=== PATIENT | female | born 1955 ===

== ENCOUNTER 2017-09-30 16:38 | Emergency (ER) | payer MEDICAID, MEDICARE ==
[2017-09-30 16:50] VITALS: BP 132/87
--- NOTE | 2017-09-30 18:07 | RAD ---
Indication: Shortness of breath, cough. 2 views of the chest including dual energy PA views demonstrates no pleural fluid. Scarring of the lung bases is noted. No definite pneumonia is identified. Emphysematous changes are noted. IMPRESSION: No definite pneumonia. Scarring is noted in the lung bases.
--- NOTE | 2017-09-30 18:24 | UC ---
Dennys Michelle Nilda, scribed for Chase Lowry MD on 09/30/17 at 1716 . Respiratory Complaint HPI - HPI Summary HPI Summary: This patient is a 61 year old F presenting to [facility] accompanied by with a chief complaint of constant sore throat for the past 4 days. Symptoms aggravated by exertion and alleviated by rest. Patient reports productive cough (green), rhinorrhea, and SOB. Patient denies fever and edema. Medications include prednisone. Allergies include Neosporin and Bacitracin. PMHx includes COUP and CAD. No PMHx CHF. - History of Current Complaint Chief Complaint: UCRespiratory Stated Complaint: SORE THROAT Time Seen by Provider: 09/30/17 17:05 Hx Obtained From: Patient Onset/Duration: Sudden Onset, Lasting Days, Still Present Timing: Constant Pain Intensity: 0 Pain Scale Used: 0-10 Numeric Character: Cough: Productive, Sputum Description: - green Aggravating Factors: Exertion Alleviating Factors: Other - rest Associated Signs And Symptoms: Negative: Fever, Edema - Allergies/Home Medications Allergies/Adverse Reactions: Allergies Allergy/AdvReac Type Severity Reaction Status Date / Time Bacitracin Allergy Rash Verified 09/30/17 16:51 Home Medications: Home Medications Atorvastatin* [Lipitor 10 MG*] 1 tab PO DAILY 09/30/17 [History Confirmed ] predniSONE TAB* [Deltasone TAB*] 7.5 mg PO DAILY 09/30/17 [History Confirmed ] PMH/Surg Hx/FS Hx/Imm Hx Cardiovascular History: Cardiac Disease Respiratory History: Other Other Respiratory History: COUP - Surgical History Surgical History: None Surgery Procedure, Year, and Place: lung biopsy 2010 - Family History Known Family History: Positive: Respiratory Disease - COPD - Social History Alcohol Use: None Substance Use Type: None Smoking Status (MU): Never Smoked Tobacco - Immunization History Most Recent Influenza Vaccination: 2017 Most Recent Pneumonia Vaccination: 2016 Review of Systems Constitutional: Other - negative fever ENT: Sore Throat, Nasal Discharge Respiratory: Shortness Of Breath, Cough Musculoskeletal: Other: - negative edema All Other Systems Reviewed And Are Negative: Yes Physical Exam Triage Information Reviewed: Yes Vital Signs: Initial Vital Signs Temp 98.5 F 09/30/17 16:40 Pulse 126 09/30/17 16:40 Resp 14 09/30/17 16:40 BP 132/87 09/30/17 16:40 Pulse Ox 98 09/30/17 16:40 Vital Signs Reviewed: Yes - Additional Comments General: well-appearing, no pain distress Skin: warm, color reflects adequate perfusion, dry Head: normal Eyes: EOMI, DANETTE ENT: normal Neck: supple, nontender Respiratory: breath sounds present, crackles bilat bases Cardiovascular: RRR Abdomen: soft, nontender Bowel: present Musculoskeletal: normal, strength/ROM intact Neurological: normal, sensory/motor intact, A&O x3 Psychological: affect/mood appropriate Diagnostic Evaluation - Laboratory O2 Sat by Pulse Oximetry: 98 - Radiology Radiology Interpretation Completed By: Radiologist - CXR, per radiologist, reveals no definite pneumonia. Scarring is noted in the lung bases. Dr. Lowry has reviewed this radiology report. Respiratory Course/Dx - Course Course Of Treatment: Medications reviewed. Allergies noted. BP noted and advised to follow up with PCP. CXR, per radiologist, reveals no definite pneumonia. Scarring is noted in the lung bases. Dr. Lowry has reviewed this radiology report. DISCUSSED RESULTS WITH PATIENT AND FAMILY. WILL START ZPAC. WE DISCUSSED THAT IF SHE GETS WORSE, TO GO TO THE ED. F/U PMD; GO TO ED IF WORSE. - Differential Dx/Diagnosis Provider Diagnoses: BRONCITIS. Elevated blood pressure without history of hypertension. Discharge - Discharge Plan Condition: Stable Disposition: HOME Prescriptions: Azithromycin TAB* [Zithromax TAB (Z-LISA) 250 mg #6 tabs] 2 tab PO .TODAY, THEN 1 DAILY #1 lisa Patient Education Materials: Acute Bronchitis (ED) Referrals: Ninfa Barton MD [Primary Care Provider] - Additional Instructions: FOLLOW UP WITH YOUR DOCTOR. GO TO THE EMERGENCY DEPARTMENT FOR ANY WORSENING OF YOUR CONDITION; CHEST PAIN, SHORTNESS OF BREATH, YOU FEEL ILL OR QUESTIONS OR CONCERNS. Your blood pressure was elevated during todays visit; please follow up with your primary care provider within a week for further evaluation. The documentation as recorded by the Dennys felipe Nilda accurately reflects the service I personally performed and the decisions made by me, Chase Lowry MD.
== END 2017-09-30 18:32 | disposition home or self-care (01) ==
LOC: UCEAST 16:38
DX: J40 Bronchitis, not specified as acute or chronic (principal); R03.0 Elevated blood-pressure reading, without diagnosis of hypertension; J02.9 Acute pharyngitis, unspecified; J34.89 Other specified disorders of nose and nasal sinuses; Z88.2 Allergy status to sulfonamides
CPT/HCPCS: 71046; 87651; 93005; 99202; G0463